=== PATIENT | female | born 1940 | race Caucasian/White ===

== ENCOUNTER 2023-09-24 10:18 | Day surgery (SDC) | payer MEDICARE ==
--- NOTE | 2023-09-23 15:38 | HP ---
HISTORY AND PHYSICAL HISTORY OF PRESENT ILLNESS: Patient denied any major symptoms. Noted to have hiatal hernia recently. Chest x-ray recently showed some chronic COPD, oxygen at night. PAST MEDICAL HISTORY: Hypertension, COPD, heart disease. PAST SURGICAL HISTORY: Appendectomy. She had a Cathy in the past. Ventral hernia in the past. Hysterectomy in the past. FAMILY HISTORY: Negative. SOCIAL HISTORY: No smoking. No alcohol abuse. MEDICATIONS: Oxygen 3L at night. She takes albuterol sulfate, nebulizer and inhaler, Incruse Ellipta inhaler, lisinopril, amlodipine, montelukast. ALLERGIES: No known drug allergies. REVIEW OF SYSTEMS: Twelve systems reviewed. Pertinent for the chronic lung disease as noted above. Other systems negative or noncontributory as above and per preadmission questionnaire. PHYSICAL EXAMINATION: GENERAL: Height 5 feet 3 inches. BMI 28.7. No acute distress. HEENT: Sclerae nonicteric. NECK: No JVD. CHEST: Equal excursion, nonlabored breathing. CARDIOVASCULAR: Regular rate and rhythm. ABDOMEN: Soft. EXTREMITIES: No cyanosis or edema. NEUROLOGIC: Alert and oriented, moving all extremities symmetrically. PSYCHIATRIC: Appropriate mood and affect. SKIN: Dry. IMPRESSION: Some lung issues, chronic obstructive pulmonary disease. Last upper endoscopy was 1996. 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 Dane Vazquez per the patient. Patient is going to need an upper endoscopy for evaluation. Risks were explained in detail, not limited to bleeding and infection; risk of bowel injury or perforation; risk of missed or nondiagnosis; risk of incomplete exam possibly requiring barium enema or other such procedure; risk of anesthesia or sedation; risk of cardiopulmonary event given commodities but not limited to. We will proceed with EGD, possible biopsy as an outpatient. Continue medication and oxygen for COPD, hypertension, heart disease.
[~2023-09-24 10:18] MED LIST: Lactated Ringers 1,000 ML IV SCH
[2023-09-24] MEDS: DUONEB 0.5-3 MG/3 ml Neb IH ONE (11:15)
[2023-09-24] MEDS ORDERED: DIPRIVAN 200 MG/20 ML IV ONE (12:04)
[2023-09-24] MEDS ORDERED: Xylocaine-Mpf 2% 5 Ml Vial ONE (12:04)
[2023-09-24 12:57] VITALS: PULSE 75; RESP 26; TEMP 96.8; O2SAT 95
[2023-09-24 13:04] VITALS: BP 149/66
--- NOTE | 2023-09-25 10:24 | OP ---
SURGERY DATE/TIME: 09/24/2023 1203 - 1213 PREOPERATIVE DIAGNOSIS: History of Booth's. POSTOPERATIVE DIAGNOSES: 1) Roberts-pink mucosa, distal esophagus, consistent with history of Booth's. 2) Mild gastritis. 3) Small hiatal hernia. PROCEDURES: 1) Esophagogastroduodenoscopy. 2) Cold biopsy of the antrum for Helicobacter pylori. 3) Multiple cold biopsies, 4 quadrants of the esophagus every centimeter or so, biopsy to evaluate for Booth's. SURGEON: Cecilio Adkins MD ANESTHESIA: MAC. ESTIMATED BLOOD LOSS: Minimal. INDICATIONS: As noted above, consent obtained. DESCRIPTION OF PROCEDURE AND FINDINGS: Patient was taken to the endoscopy suite. MAC anesthesia was induced after official time-out and no disagreement for planned procedure. Bite block positioned. Video gastroscope easily passed down the esophagus through the patent pylorus to the junction of the third and fourth portions of the duodenum. The duodenum was grossly unremarkable. Scope pulled back in the stomach, and some minimal gastritis. Cold biopsy taken to evaluate for H pylori. Good hemostasis noted. On retroflex was a small, short hiatal hernia. It did not seem like it extended up into the hiatus area. She had some sort of procedure in the past where she said she had 3 inches of Booth's removed or something done years ago. It is unclear what this procedure was, but she did have the small, short hiatal hernia. The scope was pulled back up to her GE junction, about 35 cm. There was 5 or 6 cm of segment of salmon-pink mucosa. No gross masses, but multiple cold biopsies, 4 quadrants, were taken about a centimeter apart up the esophagus to be sent for evaluation for Pathology to evaluate for dysplasia or any other changes. The more proximal esophagus was grossly unremarkable. The scope was withdrawn. The patient tolerated the procedure well. Findings were discussed with the family out in the waiting area.
== END 2023-09-24 13:05 | disposition home or self-care (01) ==
LOC: SDC 10:18
PROVIDERS: ATTEND Surgery
DX: K22.70 Barrett's esophagus without dysplasia (principal); Z87.19 Personal history of other diseases of the digestive system; K29.70 Gastritis, unspecified, without bleeding; K44.9 Diaphragmatic hernia without obstruction or gangrene
CPT/HCPCS: 93005; 94640; 99100; J2704; A9270-GY